=== PATIENT | male | born 1990 | race Two or more races ===

== ENCOUNTER 2017-04-28 15:43 | Emergency (ER) | payer BC ==
[~2017-04-28] VITALS: Ht 172.7 cm; Wt 83.9 kg
[2017-04-28 16:03] VITALS: BP 128/85
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
[2017-04-28] MEDS ORDERED: IBUPROFEN 600 MG TABLET PO ONE ×2 (16:27→16:30)
== END 2017-04-28 16:43 | disposition home or self-care (01) ==
LOC: ER 15:44
DX: S39.91XA Unspecified injury of abdomen, initial encounter (principal); V23.4XXA Motorcycle driver injured in collision with car, pick-up truck or van in traffic accident, initial encounter; Y93.55 Activity, bike riding; Y92.89 Other specified places as the place of occurrence of the external cause; Y99.8 Other external cause status
CPT/HCPCS: 99283; A4606; Z7610